=== PATIENT | male | born 1970 | race Hispanic/Latino ===

== ENCOUNTER 2023-06-18 11:39 | Emergency (ER) | payer OTHER ==
[2023-06-18] MEDS ORDERED: Meclizine HCl 25 MG TAB ONE ×2 (12:39→14:14)
[2023-06-18] MEDS ORDERED: Ondansetron ODT 4 MG TAB ONE (12:42)
== END 2023-06-18 15:12 | disposition home or self-care (01) ==
LOC: MADERS 11:39
DX: H81.12 Benign paroxysmal vertigo, left ear (principal); R29.700 NIHSS score 0; I10 Essential (primary) hypertension; I25.10 Atherosclerotic heart disease of native coronary artery without angina pectoris; Z79.82 Long term (current) use of aspirin; Z79.899 Other long term (current) drug therapy; Z95.1 Presence of aortocoronary bypass graft
CPT/HCPCS: Q0162